=== PATIENT | female | born 1940 | race Caucasian/White ===

== ENCOUNTER 2018-02-02 09:31 | Day surgery (SDC) | payer MEDICARE, OTHER ==
[~2018-02-02] VITALS: Ht 167.6 cm; Wt 59.9 kg
[~2018-02-02 09:31] MED LIST: BACTRIM DS TAB1 EACH PO; FLAX OIL1000 MG PO; LISINOPRIL5 MG PO; MAGNESIUM250 M1 PO; METOPROLOL SUCC25 MG PO; MULTIVITAMINS1 EAC8 PO; VITAMIN D1000 UNI1 PO; ZITHROMAX250 MG PO
== END 2018-02-02 12:13 | disposition home or self-care (01) ==
LOC: DS 09:31 → OPS 09:31 → DS 10:45 → OPS 12:13
PROVIDERS: Ophthalmology
PROC: 08RJ3JZ Replacement of Right Lens with Synthetic Substitute, Percutaneous Approach (ICD-10-PCS; principal; 2018-02-02 10:45)
DX: H25.13 Age-related nuclear cataract, bilateral (principal); M19.90 Unspecified osteoarthritis, unspecified site; K21.9 Gastro-esophageal reflux disease without esophagitis; I10 Essential (primary) hypertension; Z90.10 Acquired absence of unspecified breast and nipple; Z90.710 Acquired absence of both cervix and uterus; Z85.3 Personal history of malignant neoplasm of breast; Z92.21 Personal history of antineoplastic chemotherapy; Z79.899 Other long term (current) drug therapy; Z97.4 Presence of external hearing-aid